=== PATIENT | female | born 1980 | race Two or more races ===

== ENCOUNTER 2022-04-27 11:19 | Emergency (ER) | payer BC, MEDICAID ==
[2022-04-27 13:32] VITALS: BP 149/80
[2022-04-27 14:39] LABS: Urine Bacteria NONE SEEN /hpf (None Seen); Urine Blood Negative /uL (Negative); Urine Specific Gravity 1.036 (1.001-1.035); Urine WBC 1 /hpf (0 - 5)
[2022-04-27] MEDS ORDERED: ACETAMINOPHEN 500 MG TAB PO ONE (15:15)
[2022-04-27] MEDS ORDERED: OSEL75CA5 PO (15:24)
[2022-04-27] MEDS ORDERED: IBUP600T27 PO (15:24)
== END 2022-04-27 15:37 | disposition home or self-care (01) ==
LOC: ER 11:22
DX: J10.1 Influenza due to other identified influenza virus with other respiratory manifestations (principal); Z20.822 Contact with and (suspected) exposure to COVID-19
CPT/HCPCS: 36415; 81001; 81025; 87426; 87804